=== PATIENT | male | born 1975 | race African-American/Black ===

== ENCOUNTER 2019-05-09 14:08 | Inpatient (IN) | payer OTHER ==
[2019-05-09 14:25] VITALS: BMI 25.7
--- NOTE | 2019-05-09 15:53 | HP ---
CIWA Score Nausea/Vomitin Muscle Tremors: 3 Anxiety: 3 Agitation: 3 Paroxysmal Sweats: 1-Minimal Palms Moist Orientation: 0-Oriented Tacttile Disturbances: 1-Very Mild Itch/Numbness Auditory Disturbances: 0-None Visual Disturbances: 0-None Headache: 2-Mild CIWA-Ar Total Score: 15 - Admission Criteria OASAS Guidelines: Admission for Medically Managed Detox: Requires at least one of the followin. CIWA greater than 12 2. Seizures within the past 24 hours 3. Delirium tremens within the past 24 hours 4. Hallucinations within the past 24 hours 5. Acute intervention needed for co occurring medical disorder 6. Acute intervention needed for co occurring psychiatric disorder 7. Severe withdrawal that cannot be handled at a lower level of care (continued vomiting, continued diarrhea, abnormal vital signs) requiring intravenous medication and/or fluids 8. Admitting History and Physical - Admission Chief Complaint: i need help to stop drinking alcohol,cocaine History of Present Illness: this 43 years old male with alcohol and cocaine dependence,seeking help in detox ,withdrawal symptom, last detox [facility] 2 months ago sprain of left ankle ambulation with post op shoe left asthna History Source: Patient Limitations to Obtaining History: No Limitations - Past Medical History Cardiovascular: Yes: HTN Pulmonary: Yes: Asthma Psych: Yes: Bipolar Dermatology: Yes: Eczema - Past Surgical History Past Surgical History: Yes: None - Smoking History Smoking history: Current every day smoker Have you smoked in the past 12 months: Yes Aproximately how many cigarettes per day: 20 - Alcohol/Substance Use Hx Alcohol Use: Yes History of Substance Use: reports: Cocaine - Social History Usual Living Arrangement: Yes: Other (homeless) Occupation: unemployed History of Recent Travel: No Admission ROS [facility] - [facility] Chief Complaint: i need help to stop drinking alcohol and cocaine Allergies/Adverse Reactions: Allergies Allergy/AdvReac Type Severity Reaction Status Date / Time No Known Allergies Allergy Verified 05/09/19 14:20 History of Present Illness: this 43 years old male with alcohol and cocaine dependence,seeking detox, withdrawal symptom, syncope alcohol related denied seizure had previous admissions in this facility before history of hypertension history of asthma eczema sprain left ankle wearing post op shoe lefr foot,stated did not need it anymore longest sobriety 1 year plan for rehab after detox history of syphilis treated in 2000 - Ebola screening Have you traveled outside of the country in the last 21 days: No Have you had contact with anyone from an Ebola affected area: No Have you been sick,other than usual withdrawal symptoms: No Do you have a fever: No - Review of Systems Constitutional: Loss of Appetite, Malaise, Night Sweats, Changes in sleep, Weakness, Unintentional Wgt. Loss EENT: reports: Nose Congestion Respiratory: reports: No Symptoms reported, Other (asthma) Cardiac: reports: No Symptoms Reported GI: reports: Nausea, Poor Appetite, Abdominal cramping : reports: No Symptoms Reported Integumentary: reports: Dryness Neuro: reports: Headache, Tremors Endocrine: reports: No Symptoms Reported Hematology: reports: No Symptoms Reported Psychiatric: reports: No Sypmtoms Reported, Judgement Intact, Mood/Affect Appropiate, Orientated x3, other (bipolar disorder) Other Systems: Reviewed and Negative Patient History - Patient Medical History Hx Anemia: No Hx Asthma: No Hx Chronic Obstructive Pulmonary Disease (COPD): No Hx Cancer: No Hx Cardiac Disorders: No Hx Congestive Heart Failure: No Hx Hypertension: Yes (on lisinopril) Hx Hypercholesterolemia: No Hx Pacemaker: No HX Cerebrovascular Accident: No Hx Seizures: No Hx Dementia: No Hx Diabetes: No Hx Gastrointestinal Disorders: No Hx Liver Disease: No Hx Genitourinary Disorders: No Hx Sexually Transmitted Disorders: Yes (joni 2000) Hx Renal Disease (ESRD): No Hx Thyroid Disease: No Hx Human Immunodeficiency Virus (HIV): No (last 04/20 negative) Hx Hepatitis C: No Hx Depression: Yes ([place]) Hx Suicide Attempt: No Hx Bipolar Disorder: Yes (non compliance with med) Hx Schizophrenia: No Other Medical History: no suicidal,no homicidal,non - Patient Surgical History Past Surgical History: No - PPD History Previous Implant?: Yes Documented Results: Negative w/o proof Implanted On Prior [facility] Admission?: Yes Date: 03/23/15 Results: 0 mm PPD to be Administered?: Yes - Smoking Cessation Smoking history: Current every day smoker Have you smoked in the past 12 months: Yes Aproximately how many cigarettes per day: 20 Hx Chewing Tobacco Use: No Initiated information on smoking cessation: Yes 'Breaking Loose' booklet given: 05/09/19 - Substances abused Alcohol Substance route: Oral Frequency: Daily Amount used: 3-4 pints of liquor Age of first use: 23 Date of last use: 05/09/19 Cocaine Substance route: Smoking Frequency: 3-6 times per week Amount used: $100 Age of first use: 23 Date of last use: 05/08/19 Admission Physical Exam [facility] - Vital Signs Vital Signs: Vital Signs - 24 hr 05/09/19 14:22 Temperature 98.0 F Pulse Rate 86 Respiratory 18 Rate Blood Pressure 144/70 - Physical General Appearance: Yes: Moderate Distress, Tremorous, Irritable, Sweating, Anxious HEENTM: Yes: Normal ENT Inspection, SHWETA, Pharynx Normal Respiratory: Yes: Lungs Clear, Normal Breath Sounds, No Respiratory Distress Neck: Yes: Within Normal Limits, Supple, Trachea in good position Breast: Yes: Within Normal Limits Cardiology: Yes: Within Normal Limits, Regular Rhythm, Regular Rate, S1, S2 Abdominal: Yes: Within Normal Limits, Normal Bowel Sounds, Non Tender, Flat, Soft Genitourinary: Yes: Within Normal Limits Musculoskeletal: Yes: Back pain, Muscle Pain Extremities: Yes: Tremors Neurological: Yes: net application support specialist II-XII NML intact, Fully Oriented, Alert, Motor Strength 5/5 Integumentary: Yes: Dry, Rash (eczema) Lymphatic: Yes: Within Normal Limits - Diagnostic (1) Alcohol dependence with uncomplicated withdrawal Current Visit: No Status: Acute (2) Cocaine dependence, uncomplicated Current Visit: No Status: Acute (3) Asthma Current Visit: No Status: Chronic (4) HTN (hypertension) Current Visit: No Status: Chronic (5) Eczema Current Visit: Yes Status: Acute (6) Dehydration Current Visit: Yes Status: Acute (7) Sprain of left ankle Current Visit: Yes Status: Acute (8) Bipolar disorder Current Visit: Yes Status: Acute Cleared for Admission [facility] - Detox or Rehab [facility] Level of Care: Medically Managed (ativan regimen) Breathalyzer - Breathalyzer Breathalyzer: 0 Urine Drug Screen - Test Device Lot number: [id number] Expiration date: 12/30/20 - Control Is test valid?: Yes - Results Drug screen NEGATIVE: No Urine drug screen results: HECTOR-Cocaine Inpatient Rehab Admission - Rehab Decision to Admit Inpatient rehab admission?: No
[2019-05-09] MEDS ORDERED: MAGNESIUM HYDROX 2400MG/30ML ORAL SUSPENSION 30 ML CUP PO PRN (16:13)
[2019-05-09] MEDS ORDERED: MENTHOL/PHENOL 1 EACH UD MM PRN (16:13)
[2019-05-09] MEDS ORDERED: ACETAMINOPHEN 325 MG TABLET (FP) PO PRN ×2 (16:13)
[2019-05-09] MEDS ORDERED: LORazepam 1 MG TABLET PO PRN (16:13)
[2019-05-09] MEDS ORDERED: NICOTINE POLACRILEX 2 MG GUM BUC PRN (16:13)
[2019-05-09] MEDS ORDERED: MAG HYDROX/AL HYDROX/SIMETH 30 ML UNIT-DOSE CUP PO PRN (16:13)
[2019-05-09] MEDS ORDERED: METHOCARBAMOL 500 MG TABLET PO PRN (16:13)
[2019-05-09] MEDS ORDERED: IBUPROFEN 400 MG TABLET (FP) PO PRN (16:13)
[2019-05-09] MEDS ORDERED: hydrOXYzine PAMOATE 25 MG CAPSULE (FP) PO PRN (16:13)
[2019-05-09] MEDS ORDERED: BISMUTH SUBSALICYLATE 524 MG/30 ML UD PO PRN (16:13)
[2019-05-09] MEDS ORDERED: MAGNESIUM CITRATE 300 ML BOTTLE PO PRN (16:13)
[2019-05-09] MEDS ORDERED: MELATONIN 5 MG TABLETS PO PRN (16:13)
[2019-05-09] MEDS ORDERED: ALBUTEROL SO4 8 GM HFA INHALER IH PRN (16:18)
[2019-05-09] MEDS: LISINOPRIL 10 MG TABLET (FP) PO SCH (17:36)
[2019-05-09] MEDS: LORazepam 2 MG TABLET PO SCH ×2 (17:36→22:53)
[2019-05-09] MEDS: THIAMINE HCL 100 MG TABLET (FP) PO SCH (22:52)
[2019-05-09] MEDS: FLUOCINONIDE 0.05% TOP OINT (15 GM TUBE) TP SCH (22:52)
[2019-05-10] MEDS: LORazepam 2 MG TABLET PO SCH ×4 (05:48→22:36)
--- NOTE | 2019-05-10 09:09 | PN ---
[facility] CIWA - CIWA Score Nausea/Vomitin-Mild Nausea/No Vomiting Muscle Tremors: 2 Anxiety: 3 Agitation: 1-Slight > Activity Paroxysmal Sweats: 2 Orientation: 1-Uncertain about Date (date of week) Tacttile Disturbances: 0-None Auditory Disturbances: 1-Very Mild Visual Disturbances: 0-None Headache: 2-Mild CIWA-Ar Total Score: 13 [facility] Progress Note (SOAP) Subjective: 43 years old male admitted on 05/09/19 for alcohol withdrawal sx management treated with ativan detox regimen feeling tired ate breakfast resting on bed prefers to stay in bed today Objective: 05/10/19 09:08 Vital Signs Temperature 97.8 F 05/10/19 09:05 Pulse Rate 80 05/10/19 09:05 Respiratory Rate 18 05/10/19 09:05 Blood Pressure 124/76 05/10/19 09:05 O2 Sat by Pulse Oximetry (%) 05/10/19 09:08 lab pending Assessment: 05/10/19 09:08 alcohol withdrawal sx Plan: ativan detox regimen
[2019-05-10] MEDS: PRENATAL VITAMINS W/ FOLIC ACID TABLET (FP) PO SCH (10:37)
[2019-05-10] MEDS: LISINOPRIL 10 MG TABLET (FP) PO SCH (10:37)
[2019-05-10] MEDS: NICOTINE 21 MG/24 HOURS TOPICAL PATCH TD SCH (10:38)
[2019-05-10] MEDS: FLUOCINONIDE 0.05% TOP OINT (15 GM TUBE) TP SCH ×2 (10:38→22:36)
[2019-05-10 10:59] LABS: HEMATOCRIT 37.5 % (35.4-49); HEMOGLOBIN 11.8 GM/dL (11.7-16.9); MCH 23.6 pg (25.7-33.7); MCHC 31.5 g/dl (32.0-35.9); MEAN CELL VOLUME 74.9 fl (80-96); MEAN PLT VOLUME 9.7 fl (7.5-11.1); PLATELET COUNT 162 K/MM3 (134-434); RBC 5.01 M/mm3 (4.00-5.60); RDW 17.6 % (11.9-15.9); WHITE BLOOD COUNT 4.6 K/mm3 (4.0-10.0)
[2019-05-10 11:27] LABS: ALBUMIN 3.2 g/dl (3.4-5.0); BILIRUBIN,TOTAL 0.4 mg/dL (0.2-1); CALCIUM 8.6 mg/dL (8.5-10.1); CREATININE 1.1 mg/dL (0.55-1.3); TOT PROT 6.3 g/dl (6.4-8.2)
[2019-05-10 12:16] LABS: RPR REACTIVE 1:1 (NONREACTIVE)
[2019-05-10 12:18] LABS: TREPONEMA ANTIBODY PREVIOUSLY REACTIVE (NONREACTIVE)
--- NOTE | 2019-05-10 12:50 | CONSULT ---
[facility] Psychiatric Consult - Data Date of interview: 05/10/19 Admission source: [facility] Identifying data: Readmission to [facility] for this 43 y/o AA male self- referred for detoxification (VENKATESH issues : alcohol, cocaine, nicotine). Interviewed at [address] [place] [phone]. Patient is single, father of four, homeless, unemployed and supported on odd jobs. Substance Abuse History: Discussed with patient. Details in current [facility] report as follows : Smoking history: Current every day smoker. Have you smoked in the past 12 months: Yes. Aproximately how many cigarettes per day: 20. Hx Chewing Tobacco Use: No. Initiated information on smoking cessation: Yes. 'Breaking Loose' booklet given: 05/09/19. - Substances abused. Alcohol. Substance route: Oral. Frequency: Daily. Amount used: 3-4 pints of liquor. Age of first use: 23. Date of last use: 05/09/19. Cocaine. Substance route: Smoking. Frequency: 3-6 times per week. Amount used: $100. Age of first use: 23. Date of last use: 05/08/19 Medical History: Bronchial asthma and multiple sclerosis (self-report). Psychiatric History: No reported history of psychiatric hospitalizations. Patient indicates that he has been diagnosed with MDD and Bipolar Disorder. No contact with OPD care providers. Mr Giovanny made a reference to past treatment with sertraline and " two other medications ". Off psychotropic medications for months. Patient denies history of suicide attempts. Physical/Sexual Abuse/Trauma History: Patient denies. Additional Comment: Urine drug screen results: HECTOR-Cocaine. Noted. Mental Status Exam - Mental Status Exam Alert and Oriented to: Time, Place, Person Cognitive Function: Good Patient Appearance: Unkempt, Disheveled Mood: Nervous, Withdrawn Affect: Mood Congruent, Constricted Patient Behavior: Fatigued, Appropriate, Cooperative Speech Pattern: Clear Voice Loudness: Normal Thought Process: Intact, Goal Oriented Thought Disorder: Not Present Hallucinations: Denies Suicidal Ideation: Denies Insight/Judgement: Poor Sleep: Well Appetite: Good Gait/Station: Normal Psychiatric Findings - Problem List ([place] 1, 2,3) (1) Alcohol dependence with uncomplicated withdrawal Current Visit: Yes Status: Acute (2) Cocaine dependence, uncomplicated Current Visit: Yes Status: Chronic (3) Nicotine dependence Current Visit: Yes Status: Chronic (4) Substance induced mood disorder Current Visit: Yes Status: Chronic - Initial Treatment Plan Initial Treatment Plan: Psychoeducation. Sleep hygiene. Detoxification. Observation.
[2019-05-10] MEDS ORDERED: ALBUTEROL SO4 0.083% IH SOL 2.5 MG/3 ML VIAL.NEB. NEB PRN (15:45)
[2019-05-10] MEDS: THIAMINE HCL 100 MG TABLET (FP) PO SCH (22:36)
[2019-05-11] MEDS: LORazepam 1 MG TABLET PO SCH ×4 (06:11→22:38)
--- NOTE | 2019-05-11 09:01 | PN ---
[facility] CIWA - CIWA Score Nausea/Vomitin-No Nausea/No Vomiting Muscle Tremors: 2 Anxiety: 2 Agitation: 1-Slight > Activity Paroxysmal Sweats: 2 Orientation: 0-Oriented Tacttile Disturbances: 1-Very Mild Itch/Numbness Auditory Disturbances: 0-None Visual Disturbances: 0-None Headache: 0-None Present CIWA-Ar Total Score: 8 S Progress Note (SOAP) Subjective: 43 years old male admitted on 05/09/19 for alcohol withdrawal sx management treated with ativan detox regimen ate breakfast feeling tired resting on bed encourage the patient to attend detox groups and meetings Objective: 05/11/19 09:00 Vital Signs Temperature 98.6 F 05/11/19 06:09 Pulse Rate 69 05/11/19 06:09 Respiratory Rate 18 05/11/19 06:09 Blood Pressure 125/73 05/11/19 06:09 O2 Sat by Pulse Oximetry (%) Laboratory Last Values WBC 4.6 K/mm3 (4.0-10.0) 05/10/19 07:50 RBC 5.01 M/mm3 (4.00-5.60) 05/10/19 07:50 Hgb 11.8 GM/dL (11.7-16.9) 05/10/19 07:50 Hct 37.5 % (35.4-49) D 05/10/19 07:50 MCV 74.9 fl (80-96) L 05/10/19 07:50 MCH 23.6 pg (25.7-33.7) L 05/10/19 07:50 MCHC 31.5 g/dl (32.0-35.9) L 05/10/19 07:50 RDW 17.6 % (11.9-15.9) H 05/10/19 07:50 Plt Count 162 K/MM3 (134-434) 05/10/19 07:50 MPV 9.7 fl (7.5-11.1) D 05/10/19 07:50 Sodium 142 mmol/L (136-145) 05/10/19 07:50 Potassium 4.0 mmol/L (3.5-5.1) 05/10/19 07:50 Chloride 108 mmol/L (98-107) H 05/10/19 07:50 Carbon Dioxide 25 mmol/L (21-32) 05/10/19 07:50 Anion Gap 9 MMOL/L (8-16) 05/10/19 07:50 BUN 15.0 mg/dL (7-18) 05/10/19 07:50 Creatinine 1.1 mg/dL (0.55-1.3) 05/10/19 07:50 Est GFR (CKD-EPI)AfAm 95.46 05/10/19 07:50 Est GFR (CKD-EPI)NonAf 82.36 05/10/19 07:50 Random Glucose 99 mg/dL (74-106) 05/10/19 07:50 Calcium 8.6 mg/dL (8.5-10.1) 05/10/19 07:50 Total Bilirubin 0.4 mg/dL (0.2-1) 05/10/19 07:50 AST 37 U/L (15-37) 05/10/19 07:50 ALT 32 U/L (13-61) 05/10/19 07:50 Alkaline Phosphatase 51 U/L (45-117) 05/10/19 07:50 Total Protein 6.3 g/dl (6.4-8.2) L 05/10/19 07:50 Albumin 3.2 g/dl (3.4-5.0) L 05/10/19 07:50 RPR Titer Reactive 1:1 (NONREACTIVE) H 05/10/19 07:50 T.pallidum Ab (MHA) Previously reactive (NONREACTIVE) 05/10/19 07:50 lab noted previously MHA reactive 05/11/19 09:01 Assessment: 05/11/19 09:02 alcohol withdrawal sx Plan: ativan detox regimen
[2019-05-11] MEDS: FLUOCINONIDE 0.05% TOP OINT (15 GM TUBE) TP SCH ×2 (10:09→22:38)
[2019-05-11] MEDS: LISINOPRIL 10 MG TABLET (FP) PO SCH (10:09)
[2019-05-11] MEDS: PRENATAL VITAMINS W/ FOLIC ACID TABLET (FP) PO SCH (10:09)
[2019-05-11] MEDS: NICOTINE 21 MG/24 HOURS TOPICAL PATCH TD SCH (10:10)
[2019-05-11] MEDS: ALBUTEROL SO4 8 GM HFA INHALER IH PRN (13:44)
[2019-05-11 15:49] LABS: PH,URINE 8.5 (5.0-8.0); URINE APPEARANCE CLEAR; URINE BILIRUBIN NEGATIVE (NEGATIVE); URINE COLOR YELLOW; URINE GLUCOSE (UA) NEGATIVE (NEGATIVE); URINE KETONE NEGATIVE (NEGATIVE); URINE LEUK ESTERASE NEGATIVE (NEGATIVE); URINE NITRITE NEGATIVE (NEGATIVE); URINE PROTEIN NEGATIVE (NEGATIVE); URINE UROBILINOGEN 0.2 mg/dL (0.2-1.0)
[2019-05-11] MEDS: THIAMINE HCL 100 MG TABLET (FP) PO SCH (22:38)
[2019-05-12] MEDS ORDERED: LORazepam 0.5 MG TABLET PO PRN
[2019-05-12] MEDS: ALBUTEROL SO4 8 GM HFA INHALER IH PRN ×3 (01:07→18:02)
[2019-05-12] MEDS: LORazepam 0.5 MG TABLET PO SCH ×4 (07:07→22:25)
[2019-05-12] MEDS: LISINOPRIL 10 MG TABLET (FP) PO SCH (10:08)
[2019-05-12] MEDS: FLUOCINONIDE 0.05% TOP OINT (15 GM TUBE) TP SCH ×2 (10:09→22:25)
[2019-05-12] MEDS: PRENATAL VITAMINS W/ FOLIC ACID TABLET (FP) PO SCH (10:10)
[2019-05-12] MEDS: NICOTINE 21 MG/24 HOURS TOPICAL PATCH TD SCH (10:10)
--- NOTE | 2019-05-12 10:23 | PN ---
[facility] CIWA - CIWA Score Nausea/Vomitin-No Nausea/No Vomiting Muscle Tremors: 2 Anxiety: 1-Mildly Anxious Agitation: 0-Normal Activity Paroxysmal Sweats: No Perspiration Orientation: 0-Oriented Tacttile Disturbances: 1-Very Mild Itch/Numbness Auditory Disturbances: 0-None Visual Disturbances: 0-None Headache: 0-None Present CIWA-Ar Total Score: 4 [facility] Progress Note (SOAP) Subjective: 43 years old male admitted on 05/09/19 for alcohol withdrawal sx management treated with ativan detox regimen feeling better good selfcare less tremor discuss aftercare with staff Objective: 05/12/19 10:24 Vital Signs Temperature 97.3 F L 05/12/19 09:14 Pulse Rate 90 05/12/19 09:14 Respiratory Rate 18 05/12/19 09:14 Blood Pressure 126/85 05/12/19 09:14 O2 Sat by Pulse Oximetry (%) Laboratory Last Values WBC 4.6 K/mm3 (4.0-10.0) 05/10/19 07:50 RBC 5.01 M/mm3 (4.00-5.60) 05/10/19 07:50 Hgb 11.8 GM/dL (11.7-16.9) 05/10/19 07:50 Hct 37.5 % (35.4-49) D 05/10/19 07:50 MCV 74.9 fl (80-96) L 05/10/19 07:50 MCH 23.6 pg (25.7-33.7) L 05/10/19 07:50 MCHC 31.5 g/dl (32.0-35.9) L 05/10/19 07:50 RDW 17.6 % (11.9-15.9) H 05/10/19 07:50 Plt Count 162 K/MM3 (134-434) 05/10/19 07:50 MPV 9.7 fl (7.5-11.1) D 05/10/19 07:50 Sodium 142 mmol/L (136-145) 05/10/19 07:50 Potassium 4.0 mmol/L (3.5-5.1) 05/10/19 07:50 Chloride 108 mmol/L (98-107) H 05/10/19 07:50 Carbon Dioxide 25 mmol/L (21-32) 05/10/19 07:50 Anion Gap 9 MMOL/L (8-16) 05/10/19 07:50 BUN 15.0 mg/dL (7-18) 05/10/19 07:50 Creatinine 1.1 mg/dL (0.55-1.3) 05/10/19 07:50 Est GFR (CKD-EPI)AfAm 95.46 05/10/19 07:50 Est GFR (CKD-EPI)NonAf 82.36 05/10/19 07:50 Random Glucose 99 mg/dL (74-106) 05/10/19 07:50 Calcium 8.6 mg/dL (8.5-10.1) 05/10/19 07:50 Total Bilirubin 0.4 mg/dL (0.2-1) 05/10/19 07:50 AST 37 U/L (15-37) 05/10/19 07:50 ALT 32 U/L (13-61) 05/10/19 07:50 Alkaline Phosphatase 51 U/L (45-117) 05/10/19 07:50 Total Protein 6.3 g/dl (6.4-8.2) L 05/10/19 07:50 Albumin 3.2 g/dl (3.4-5.0) L 05/10/19 07:50 Urine Color Yellow 05/11/19 13:30 Urine Appearance Clear 05/11/19 13:30 Urine pH 8.5 (5.0-8.0) H D 05/11/19 13:30 Ur Specific [place] 1.019 (1.010-1.035) 05/11/19 13:30 Urine Protein Negative (NEGATIVE) 05/11/19 13:30 Urine Glucose (UA) Negative (NEGATIVE) 05/11/19 13:30 Urine Ketones Negative (NEGATIVE) 05/11/19 13:30 Urine Blood Negative (NEGATIVE) 05/11/19 13:30 Urine Nitrite Negative (NEGATIVE) 05/11/19 13:30 Urine Bilirubin Negative (NEGATIVE) 05/11/19 13:30 Urine Urobilinogen 0.2 mg/dL (0.2-1.0) 05/11/19 13:30 Ur Leukocyte Esterase Negative (NEGATIVE) 05/11/19 13:30 RPR Titer Reactive 1:1 (NONREACTIVE) H 05/10/19 07:50 T.pallidum Ab (MHA) Previously reactive (NONREACTIVE) 05/10/19 07:50 lab noted Assessment: 05/12/19 10:24 alcohol withdrawal sx Plan: ativan detox regimen
[2019-05-12] MEDS: BUDESONIDE/FORMETEROL FUMARATE 80/4.5 mcg INHALER IH SCH ×2 (12:00→22:25)
[2019-05-12] MEDS: THIAMINE HCL 100 MG TABLET (FP) PO SCH (22:25)
[2019-05-13] MEDS ORDERED: LORazepam 0.5 MG TABLET PO ONE (05:00)
[2019-05-13 06:08] VITALS: BP 98/59; PULSE 63; TEMP 97.5
--- NOTE | 2019-05-13 13:34 | DS ---
[facility] Detox Discharge Summary Admission Date: 05/09/19 Discharge Date: 05/13/19 - History Present History: Alcohol Dependence Additional Comments: 43 years old male admitted on 05/09/19 for alcohol withdrawal sx management treated with ativan detox regimen completed detox today left the detox unit round 7am today sports writer has not assessed nor evaluated the patient prior to be discharged - Physical Exam Results Vital Signs: Vital Signs Temperature 97.5 F L 05/13/19 06:08 Pulse Rate 63 05/13/19 06:08 Respiratory Rate 18 05/13/19 06:08 Blood Pressure 98/59 L 05/13/19 06:08 O2 Sat by Pulse Oximetry (%) Pertinent Admission Physical Exam Findings: alcohol withdrawal sx Laboratory Last Values WBC 4.6 K/mm3 (4.0-10.0) 05/10/19 07:50 RBC 5.01 M/mm3 (4.00-5.60) 05/10/19 07:50 Hgb 11.8 GM/dL (11.7-16.9) 05/10/19 07:50 Hct 37.5 % (35.4-49) D 05/10/19 07:50 MCV 74.9 fl (80-96) L 05/10/19 07:50 MCH 23.6 pg (25.7-33.7) L 05/10/19 07:50 MCHC 31.5 g/dl (32.0-35.9) L 05/10/19 07:50 RDW 17.6 % (11.9-15.9) H 05/10/19 07:50 Plt Count 162 K/MM3 (134-434) 05/10/19 07:50 MPV 9.7 fl (7.5-11.1) D 05/10/19 07:50 Sodium 142 mmol/L (136-145) 05/10/19 07:50 Potassium 4.0 mmol/L (3.5-5.1) 05/10/19 07:50 Chloride 108 mmol/L (98-107) H 05/10/19 07:50 Carbon Dioxide 25 mmol/L (21-32) 05/10/19 07:50 Anion Gap 9 MMOL/L (8-16) 05/10/19 07:50 BUN 15.0 mg/dL (7-18) 05/10/19 07:50 Creatinine 1.1 mg/dL (0.55-1.3) 05/10/19 07:50 Est GFR (CKD-EPI)AfAm 95.46 05/10/19 07:50 Est GFR (CKD-EPI)NonAf 82.36 05/10/19 07:50 Random Glucose 99 mg/dL (74-106) 05/10/19 07:50 Calcium 8.6 mg/dL (8.5-10.1) 05/10/19 07:50 Total Bilirubin 0.4 mg/dL (0.2-1) 05/10/19 07:50 AST 37 U/L (15-37) 05/10/19 07:50 ALT 32 U/L (13-61) 05/10/19 07:50 Alkaline Phosphatase 51 U/L (45-117) 05/10/19 07:50 Total Protein 6.3 g/dl (6.4-8.2) L 05/10/19 07:50 Albumin 3.2 g/dl (3.4-5.0) L 05/10/19 07:50 Urine Color Yellow 05/11/19 13:30 Urine Appearance Clear 05/11/19 13:30 Urine pH 8.5 (5.0-8.0) H D 05/11/19 13:30 Ur Specific [place] 1.019 (1.010-1.035) 05/11/19 13:30 Urine Protein Negative (NEGATIVE) 05/11/19 13:30 Urine Glucose (UA) Negative (NEGATIVE) 05/11/19 13:30 Urine Ketones Negative (NEGATIVE) 05/11/19 13:30 Urine Blood Negative (NEGATIVE) 05/11/19 13:30 Urine Nitrite Negative (NEGATIVE) 05/11/19 13:30 Urine Bilirubin Negative (NEGATIVE) 05/11/19 13:30 Urine Urobilinogen 0.2 mg/dL (0.2-1.0) 05/11/19 13:30 Ur Leukocyte Esterase Negative (NEGATIVE) 05/11/19 13:30 RPR Titer Reactive 1:1 (NONREACTIVE) H 05/10/19 07:50 T.pallidum Ab (MHA) Previously reactive (NONREACTIVE) 05/10/19 07:50 lab noted - Treatment Hospital Course: Detox Protocol Followed Patient has Accepted [facility] - Medication Discharge Medications: Ambulatory Orders Albuterol Sulfate Inhaler - [Ventolin HFA Inhaler -] 1 puff IH Q4H PRN #1 canister 03/24/15 Fluocinonide 0.05% Oin [Lidex 0.05% Ointment -] 1 applic TP DAILY #0 oint...g. 03/24/15 - Diagnosis (1) Alcohol dependence with uncomplicated withdrawal Status: Acute (2) Eczema Status: Chronic Qualifiers: Eczema type: unspecified Qualified Code(s): L30.9 - Dermatitis, unspecified (3) Syphilis Status: Chronic (4) Asthma Status: Chronic Qualifiers: Asthma severity: mild Asthma persistence: intermittent Asthma complication type: with status asthmaticus Qualified Code(s): J45.22 - Mild intermittent asthma with status asthmaticus (5) HTN (hypertension) Status: Chronic Qualifiers: Hypertension type: essential hypertension Qualified Code(s): I10 - Essential (primary) hypertension (6) Nicotine dependence Status: Acute Qualifiers: Nicotine product type: cigarettes Substance use status: in withdrawal Qualified Code(s): F17.213 - Nicotine dependence, cigarettes, with withdrawal (7) Substance induced mood disorder Status: Suspected - AMA Did Patient Leave Against Medical Advice: No
== END 2019-05-13 06:58 | disposition home or self-care (01) | DRG 774 ==
LOC: YASAS 14:08 → Y3N 17:01
PROVIDERS: ADMIT Allergy & Immunology; ATTEND Allergy & Immunology
PROC: HZ2ZZZZ Detoxification Services for Substance Abuse Treatment (ICD-10-PCS; principal; 2019-05-09)
DX: F10.230 Alcohol dependence with withdrawal, uncomplicated (principal); F14.20 Cocaine dependence, uncomplicated; F17.213 Nicotine dependence, cigarettes, with withdrawal; F19.24 Other psychoactive substance dependence with psychoactive substance-induced mood disorder; F31.9 Bipolar disorder, unspecified; I10 Essential (primary) hypertension; J45.22 Mild intermittent asthma with status asthmaticus; L30.9 Dermatitis, unspecified; E86.0 Dehydration; Z86.19 Personal history of other infectious and parasitic diseases; S93.402A Sprain of unspecified ligament of left ankle, initial encounter; X58.XXXA Exposure to other specified factors, initial encounter; Y93.89 Activity, other specified; Y92.89 Other specified places as the place of occurrence of the external cause; Y99.8 Other external cause status; Z59.0 Homelessness
CPT/HCPCS: 36415; 80053; 81003; 85027; 86593; 86780

== ENCOUNTER 2019-06-06 15:18 | Inpatient (IN) | payer OTHER ==
[2019-06-06 16:43] VITALS: BMI 25.9
--- NOTE | 2019-06-06 18:48 | HP ---
CIWA Score Nausea/Vomitin Muscle Tremors: 3 Anxiety: 3 Agitation: 3 Paroxysmal Sweats: No Perspiration Orientation: 0-Oriented Tacttile Disturbances: 1-Very Mild Itch/Numbness Auditory Disturbances: 0-None Visual Disturbances: 0-None Headache: 2-Mild CIWA-Ar Total Score: 14 - Admission Criteria OASAS Guidelines: Admission for Medically Managed Detox: Requires at least one of the followin. CIWA greater than 12 2. Seizures within the past 24 hours 3. Delirium tremens within the past 24 hours 4. Hallucinations within the past 24 hours 5. Acute intervention needed for co occurring medical disorder 6. Acute intervention needed for co occurring psychiatric disorder 7. Severe withdrawal that cannot be handled at a lower level of care (continued vomiting, continued diarrhea, abnormal vital signs) requiring intravenous medication and/or fluids 8. Admitting History and Physical - Admission Chief Complaint: i need help to stop drinking alcohol and cocaine History of Present Illness: this 43 years old male with alcohol and cocaine dependence seeking detox, withdrwal symptom history of asthma,eczema last detox 05/09/19 to 05/13/19 but keep relapsing syncope no seizure nicotine dependence anxiety depression History Source: Patient Limitations to Obtaining History: No Limitations - Past Medical History VASCULAR MANAGER: Yes: Syncope Cardiovascular: Yes: HTN Pulmonary: Yes: Asthma Psych: Yes: Bipolar Dermatology: Yes: Eczema - Past Surgical History Past Surgical History: Yes: None - Smoking History Smoking history: Current every day smoker Have you smoked in the past 12 months: Yes Aproximately how many cigarettes per day: 20 - Alcohol/Substance Use Hx Alcohol Use: Yes History of Substance Use: reports: Cocaine - Social History Usual Living Arrangement: Yes: Alone ADL: Support Services Occupation: unemployed History of Recent Travel: No Admission ROS [facility] Chief Complaint: i need help to stop drinking alcohol,cocaine Allergies/Adverse Reactions: Allergies Allergy/AdvReac Type Severity Reaction Status Date / Time No Known Allergies Allergy Verified 06/06/19 16:29 History of Present Illness: this 43 years old male with alcohol and cocaine dependence,seeking detox, withdrawal symptom, last detox [facility] 05/09/19 to 05/13/19 syncope no seizure history of htn,asthma,eczema living alone,unemployed longest sobriety 2 years Exam Limitations: No Limitations - Ebola screening Have you traveled outside of the country in the last 21 days: No (N) Have you had contact with anyone from an Ebola affected area: No Do you have a fever: No - Review of Systems Constitutional: Loss of Appetite, Night Sweats, Changes in sleep EENT: reports: No Symptoms Reported Respiratory: reports: Wheezing Cardiac: reports: No Symptoms Reported GI: reports: Nausea, Poor Appetite, Abdominal cramping : reports: No Symptoms Reported Musculoskeletal: reports: Back Pain, Muscle Pain Integumentary: reports: Dryness, Rash, Other (eczema) Neuro: reports: Headache, Tremors Endocrine: reports: No Symptoms Reported Hematology: reports: No Symptoms Reported Psychiatric: reports: No Sypmtoms Reported, Judgement Intact, Mood/Affect Appropiate, Orientated x3, other (bipolar disorder) Other Systems: Reviewed and Negative Patient History - Patient Medical History Hx Anemia: No Hx Asthma: No Hx Chronic Obstructive Pulmonary Disease (COPD): No Hx Cancer: No Hx Cardiac Disorders: No Hx Congestive Heart Failure: No Hx Hypertension: Yes (on lisinopril) Hx Hypercholesterolemia: No Hx Pacemaker: No HX Cerebrovascular Accident: No Hx Seizures: No Hx Dementia: No Hx Diabetes: No Hx Gastrointestinal Disorders: No Hx Liver Disease: No Hx Genitourinary Disorders: No Hx Sexually Transmitted Disorders: Yes (syphilis 2000) Hx Renal Disease (ESRD): No Hx Thyroid Disease: No Hx Human Immunodeficiency Virus (HIV): No (last 04/20 negative) Hx Hepatitis C: No Hx Depression: Yes ([place]) Hx Suicide Attempt: No Hx Bipolar Disorder: Yes (non compliance with med) Hx Schizophrenia: No Other Medical History: no suicidal,no homicidal - Patient Surgical History Past Surgical History: No Hx Neurologic Surgery: No Hx Cataract Extraction: No Hx Cardiac Surgery: No Hx Lung Surgery: No Hx Breast Surgery: No Hx Breast Biopsy: No Hx Abdominal Surgery: No Hx Appendectomy: No Hx Cholecystectomy: No Hx Genitourinary Surgery: No Hx Section: No Hx Orthopedic Surgery: No Anesthesia Reaction: No - PPD History Previous Implant?: Yes Documented Results: Negative w/proof Implanted On Prior R Admission?: Yes Date: 05/11/19 Results: 0 mm PPD to be Administered?: No - Smoking Cessation Smoking history: Current every day smoker Have you smoked in the past 12 months: Yes Aproximately how many cigarettes per day: 20 Hx Chewing Tobacco Use: No Initiated information on smoking cessation: Yes 'Breaking Loose' booklet given: 06/06/19 - Substance & Tx. History Hx Alcohol Use: Yes Hx Substance Use: Yes Substance Use Type: Alcohol, Cocaine Hx Substance Use Treatment: Yes ([facility] 05/09/18 to 05/13/19) - Substances abused Alcohol Substance route: Oral Frequency: Daily Amount used: 3-4 pints of liquor, 1 six packof 12 ozs of beer Age of first use: 23 Date of last use: 06/06/19 Cocaine Substance route: Smoking Frequency: 3-6 times per week Amount used: $100 Age of first use: 23 Date of last use: 06/05/19 Admission Physical Exam [facility] - Vital Signs Vital Signs: Vital Signs - 24 hr 06/06/19 06/06/19 06/06/19 16:20 16:42 17:17 Temperature 98.4 F 98.4 F 98.4 F Pulse Rate 85 85 85 Respiratory 18 18 18 Rate Blood Pressure 132/68 132/68 132/68 - Physical General Appearance: Yes: Moderate Distress, Tremorous, Irritable, Sweating, Anxious HEENTM: Yes: Normal ENT Inspection, SHWETA, Pharynx Normal Respiratory: Yes: Lungs Clear, Wheezing Neck: Yes: Within Normal Limits, Supple, Trachea in good position Breast: Yes: Within Normal Limits Cardiology: Yes: Within Normal Limits, Regular Rhythm, Regular Rate, S1, S2 Abdominal: Yes: Within Normal Limits, Normal Bowel Sounds, Non Tender, Soft Genitourinary: Yes: Within Normal Limits Back: Yes: Muscle Spasm Musculoskeletal: Yes: Back pain, Muscle Pain Extremities: Yes: Tremors Neurological: Yes: case planner II-XII NML intact, Alert, Motor Strength 5/5 Integumentary: Yes: Dry, Rash (eczema), Other (eczema) Lymphatic: Yes: Within Normal Limits - Diagnostic (1) Alcohol dependence with uncomplicated withdrawal Current Visit: No Status: Acute (2) Bipolar disorder Current Visit: No Status: Acute (3) Dehydration Current Visit: No Status: Acute (4) Nicotine dependence Current Visit: No Status: Acute Qualifiers: Nicotine product type: cigarettes Substance use status: in withdrawal Qualified Code(s): F17.213 - Nicotine dependence, cigarettes, with withdrawal (5) Asthma Current Visit: No Status: Chronic Qualifiers: Asthma severity: mild Asthma persistence: intermittent Asthma complication type: with status asthmaticus Qualified Code(s): J45.22 - Mild intermittent asthma with status asthmaticus (6) Cocaine dependence, uncomplicated Current Visit: No Status: Chronic (7) Eczema Current Visit: No Status: Chronic Qualifiers: Eczema type: unspecified Qualified Code(s): L30.9 - Dermatitis, unspecified (8) HTN (hypertension) Current Visit: No Status: Chronic Qualifiers: Hypertension type: essential hypertension Qualified Code(s): I10 - Essential (primary) hypertension (9) Syphilis Current Visit: No Status: Chronic (10) Syncope Current Visit: Yes Status: Acute Cleared for Admission S - Detox or Rehab [facility] Level of Care: Medically Managed Detox Regimen/Protocol: Librium Breathalyzer - Breathalyzer Breathalyzer: 0 Urine Drug Screen - Test Device Lot number: [id number] Expiration date: 03/01/21 - Control Is test valid?: Yes - Results Drug screen NEGATIVE: No Urine drug screen results: HECTOR-Cocaine, BZO-Benzodiazepines Inpatient Rehab Admission - Rehab Decision to Admit Inpatient rehab admission?: No
[2019-06-06] MEDS ORDERED: ACETAMINOPHEN 325 MG TABLET (FP) PO PRN ×2 (19:00)
[2019-06-06] MEDS ORDERED: MAG HYDROX/AL HYDROX/SIMETH 30 ML UNIT-DOSE CUP PO PRN (19:00)
[2019-06-06] MEDS ORDERED: MAGNESIUM CITRATE 300 ML BOTTLE PO PRN (19:00)
[2019-06-06] MEDS ORDERED: MELATONIN 5 MG TABLETS PO PRN (19:00)
[2019-06-06] MEDS ORDERED: IBUPROFEN 400 MG TABLET (FP) PO PRN (19:00)
[2019-06-06] MEDS ORDERED: chlordiazePOXIDE HCL 25 MG CAPSULE PO PRN (19:00)
[2019-06-06] MEDS ORDERED: BISMUTH SUBSALICYLATE 524 MG/30 ML UD PO PRN (19:00)
[2019-06-06] MEDS ORDERED: hydrOXYzine PAMOATE 25 MG CAPSULE (FP) PO PRN (19:00)
[2019-06-06] MEDS ORDERED: METHOCARBAMOL 500 MG TABLET PO PRN (19:00)
[2019-06-06] MEDS ORDERED: MAGNESIUM HYDROX 2400MG/30ML ORAL SUSPENSION 30 ML CUP PO PRN (19:00)
[2019-06-06] MEDS ORDERED: MENTHOL/PHENOL 1 EACH UD MM PRN (19:00)
[2019-06-06] MEDS: chlordiazePOXIDE HCL 25 MG CAPSULE PO SCH (23:20)
[2019-06-06] MEDS: THIAMINE HCL 100 MG TABLET (FP) PO SCH (23:21)
[2019-06-06] MEDS: FLUOCINONIDE 0.05% TOP OINT (60 GM TUBE) TP SCH (23:23)
[2019-06-07] MEDS: ALBUTEROL SO4 8 GM HFA INHALER IH PRN ×4 (01:59→22:53)
[2019-06-07] MEDS: chlordiazePOXIDE HCL 25 MG CAPSULE PO SCH ×4 (05:58→22:32)
[2019-06-07 09:57] LABS: HEMATOCRIT 38.1 % (35.4-49); HEMOGLOBIN 11.9 GM/dL (11.7-16.9); MCH 23.4 pg (25.7-33.7); MCHC 31.2 g/dl (32.0-35.9); MEAN PLT VOLUME 9.2 fl (7.5-11.1); PLATELET COUNT 180 K/MM3 (134-434); RBC 5.07 M/mm3 (4.00-5.60); WHITE BLOOD COUNT 4.4 K/mm3 (4.0-10.0)
[2019-06-07 10:02] LABS: ALBUMIN 3.2 g/dl (3.4-5.0); BILIRUBIN,TOTAL 0.2 mg/dL (0.2-1); BLOOD UREA NITROGEN 13.3 mg/dL (7-18); CALCIUM 8.6 mg/dL (8.5-10.1); CREATININE 1.1 mg/dL (0.55-1.3); TOT PROT 6.5 g/dl (6.4-8.2)
[2019-06-07] MEDS: FLUOCINONIDE 0.05% TOP OINT (60 GM TUBE) TP SCH ×2 (10:21→22:52)
[2019-06-07] MEDS: PRENATAL VITAMINS W/ FOLIC ACID TABLET (FP) PO SCH (10:21)
[2019-06-07 11:20] LABS: RPR REACTIVE 1:1 (NONREACTIVE)
[2019-06-07 11:23] LABS: TREPONEMA ANTIBODY PREVIOUSLY REACTIVE (NONREACTIVE)
--- NOTE | 2019-06-07 12:28 | PN ---
[facility] CIWA - CIWA Score Nausea/Vomitin-Mild Nausea/No Vomiting Muscle Tremors: 3 Anxiety: 3 Agitation: 1-Slight > Activity Paroxysmal Sweats: 2 Orientation: 1-Uncertain about Date Tacttile Disturbances: 0-None Auditory Disturbances: 0-None Visual Disturbances: 0-None Headache: 1-Very Mild CIWA-Ar Total Score: 12 S Progress Note (SOAP) Subjective: 43 years old male admitted on 06/06/19 for alcohol withdrawal sx management treating with librium detox regimen feeling tired today prefers to stay in bed limited conversation with staff Objective: 06/07/19 12:27 Vital Signs Temperature 97.3 F L 06/07/19 09:02 Pulse Rate 75 06/07/19 09:02 Respiratory Rate 18 06/07/19 09:02 Blood Pressure 130/79 06/07/19 09:02 O2 Sat by Pulse Oximetry (%) Laboratory Last Values WBC 4.4 K/mm3 (4.0-10.0) 06/07/19 08:15 RBC 5.07 M/mm3 (4.00-5.60) 06/07/19 08:15 Hgb 11.9 GM/dL (11.7-16.9) 06/07/19 08:15 Hct 38.1 % (35.4-49) 06/07/19 08:15 MCV 75.0 fl (80-96) L 06/07/19 08:15 MCH 23.4 pg (25.7-33.7) L 06/07/19 08:15 MCHC 31.2 g/dl (32.0-35.9) L 06/07/19 08:15 RDW 17.0 % (11.9-15.9) H 06/07/19 08:15 Plt Count 180 K/MM3 (134-434) 06/07/19 08:15 MPV 9.2 fl (7.5-11.1) 06/07/19 08:15 Sodium 140 mmol/L (136-145) 06/07/19 08:15 Potassium 4.0 mmol/L (3.5-5.1) 06/07/19 08:15 Chloride 108 mmol/L (98-107) H 06/07/19 08:15 Carbon Dioxide 25 mmol/L (21-32) 06/07/19 08:15 Anion Gap 7 MMOL/L (8-16) L 06/07/19 08:15 BUN 13.3 mg/dL (7-18) 06/07/19 08:15 Creatinine 1.1 mg/dL (0.55-1.3) 06/07/19 08:15 Est GFR (CKD-EPI)AfAm 95.46 06/07/19 08:15 Est GFR (CKD-EPI)NonAf 82.36 06/07/19 08:15 Random Glucose 85 mg/dL (74-106) 06/07/19 08:15 Calcium 8.6 mg/dL (8.5-10.1) 06/07/19 08:15 Total Bilirubin 0.2 mg/dL (0.2-1) 06/07/19 08:15 AST 33 U/L (15-37) 06/07/19 08:15 ALT 25 U/L (13-61) 06/07/19 08:15 Alkaline Phosphatase 51 U/L (45-117) 06/07/19 08:15 Total Protein 6.5 g/dl (6.4-8.2) 06/07/19 08:15 Albumin 3.2 g/dl (3.4-5.0) L 06/07/19 08:15 RPR Titer Reactive 1:1 (NONREACTIVE) H 06/07/19 08:15 T.pallidum Ab (MHA) Previously reactive (NONREACTIVE) 06/07/19 08:15 lab noted Assessment: 06/07/19 12:28 alcohol withdrawal Plan: librium regimen
[2019-06-07] MEDS: COLLOIDAL OATMEAL 1 BAR EACH TP PRN (17:33)
--- NOTE | 2019-06-07 17:54 | CONSULT ---
[facility] Psychiatric Consult - Data Date of interview: 06/07/19 Admission source: [facility] Identifying data: Patient refused psychiatric evaluation. Nursing staff is made aware.
[2019-06-07] MEDS: THIAMINE HCL 100 MG TABLET (FP) PO SCH (22:33)
[2019-06-08] MEDS: chlordiazePOXIDE HCL 25 MG CAPSULE PO SCH ×2 (06:18→10:30)
[2019-06-08] MEDS: PRENATAL VITAMINS W/ FOLIC ACID TABLET (FP) PO SCH (10:30)
[2019-06-08] MEDS: FLUOCINONIDE 0.05% TOP OINT (60 GM TUBE) TP SCH ×2 (10:30→22:41)
--- NOTE | 2019-06-08 11:49 | PN ---
S CIWA - CIWA Score Nausea/Vomitin-No Nausea/No Vomiting Muscle Tremors: 2 Anxiety: 3 Agitation: 1-Slight > Activity Paroxysmal Sweats: 2 Orientation: 0-Oriented Tacttile Disturbances: 0-None Auditory Disturbances: 0-None Visual Disturbances: 0-None Headache: 0-None Present CIWA-Ar Total Score: 8 BHS Progress Note (SOAP) Subjective: 43 years old male admitted on 06/06/19 for alcohol withdrawal sx management treating with librium detox regimen refuse librium 25 mg today that "too much" and made him tired modified librium 25 mg and 10 mg to suitable for the needs of patient Objective: 06/08/19 11:48 Vital Signs Temperature 97.5 F L 06/08/19 09:21 Pulse Rate 66 06/08/19 09:21 Respiratory Rate 18 06/08/19 09:21 Blood Pressure 131/77 06/08/19 09:21 O2 Sat by Pulse Oximetry (%) Laboratory Last Values WBC 4.4 K/mm3 (4.0-10.0) 06/07/19 08:15 RBC 5.07 M/mm3 (4.00-5.60) 06/07/19 08:15 Hgb 11.9 GM/dL (11.7-16.9) 06/07/19 08:15 Hct 38.1 % (35.4-49) 06/07/19 08:15 MCV 75.0 fl (80-96) L 06/07/19 08:15 MCH 23.4 pg (25.7-33.7) L 06/07/19 08:15 MCHC 31.2 g/dl (32.0-35.9) L 06/07/19 08:15 RDW 17.0 % (11.9-15.9) H 06/07/19 08:15 Plt Count 180 K/MM3 (134-434) 06/07/19 08:15 MPV 9.2 fl (7.5-11.1) 06/07/19 08:15 Sodium 140 mmol/L (136-145) 06/07/19 08:15 Potassium 4.0 mmol/L (3.5-5.1) 06/07/19 08:15 Chloride 108 mmol/L (98-107) H 06/07/19 08:15 Carbon Dioxide 25 mmol/L (21-32) 06/07/19 08:15 Anion Gap 7 MMOL/L (8-16) L 06/07/19 08:15 BUN 13.3 mg/dL (7-18) 06/07/19 08:15 Creatinine 1.1 mg/dL (0.55-1.3) 06/07/19 08:15 Est GFR (CKD-EPI)AfAm 95.46 06/07/19 08:15 Est GFR (CKD-EPI)NonAf 82.36 06/07/19 08:15 Random Glucose 85 mg/dL (74-106) 06/07/19 08:15 Calcium 8.6 mg/dL (8.5-10.1) 06/07/19 08:15 Total Bilirubin 0.2 mg/dL (0.2-1) 06/07/19 08:15 AST 33 U/L (15-37) 06/07/19 08:15 ALT 25 U/L (13-61) 06/07/19 08:15 Alkaline Phosphatase 51 U/L (45-117) 06/07/19 08:15 Total Protein 6.5 g/dl (6.4-8.2) 06/07/19 08:15 Albumin 3.2 g/dl (3.4-5.0) L 06/07/19 08:15 RPR Titer Reactive 1:1 (NONREACTIVE) H 06/07/19 08:15 T.pallidum Ab (MHA) Previously reactive (NONREACTIVE) 06/07/19 08:15 lab noted Assessment: 06/08/19 11:48 alcohol withdrawal Plan: libirum regimen
[2019-06-08] MEDS: chlordiazePOXIDE HCL 10 MG CAPSULE PO SCH ×2 (17:18→22:42)
[2019-06-08] MEDS: ALBUTEROL SO4 8 GM HFA INHALER IH PRN (17:19)
[2019-06-08] MEDS: THIAMINE HCL 100 MG TABLET (FP) PO SCH (22:42)
[2019-06-09] MEDS ORDERED: chlordiazePOXIDE HCL 10 MG CAPSULE PO PRN
[2019-06-09 00:28] LABS: URINE APPEARANCE CLEAR; URINE BILIRUBIN NEGATIVE (NEGATIVE); URINE COLOR YELLOW; URINE GLUCOSE (UA) NEGATIVE (NEGATIVE); URINE KETONE NEGATIVE (NEGATIVE); URINE LEUK ESTERASE NEGATIVE (NEGATIVE); URINE NITRITE NEGATIVE (NEGATIVE); URINE PROTEIN NEGATIVE (NEGATIVE); URINE UROBILINOGEN 0.2 mg/dL (0.2-1.0)
[2019-06-09] MEDS: ALBUTEROL SO4 8 GM HFA INHALER IH PRN ×2 (04:30→17:25)
[2019-06-09] MEDS ORDERED: chlordiazePOXIDE HCL 10 MG CAPSULE PO SCH (05:00)
[2019-06-09] MEDS: chlordiazePOXIDE 5 MG CAPSULE PO SCH ×4 (05:13→23:33)
[2019-06-09] MEDS: PRENATAL VITAMINS W/ FOLIC ACID TABLET (FP) PO SCH (10:20)
[2019-06-09] MEDS: FLUOCINONIDE 0.05% TOP OINT (60 GM TUBE) TP SCH ×2 (10:20→23:32)
--- NOTE | 2019-06-09 11:25 | PN ---
[facility] CIWA - CIWA Score Nausea/Vomitin-No Nausea/No Vomiting Muscle Tremors: 2 Anxiety: 1-Mildly Anxious Agitation: 2 Paroxysmal Sweats: 1-Minimal Palms Moist Orientation: 0-Oriented Tacttile Disturbances: 0-None Auditory Disturbances: 0-None Visual Disturbances: 0-None Headache: 0-None Present CIWA-Ar Total Score: 6 S Progress Note (SOAP) Subjective: 43 years old male admitted on 06/06/19 for alcohol withdrawal sx management treating with librium detox regimen ate breakfast resting in bed encourage the patient to discuss aftercare with staff Objective: 06/09/19 11:24 Vital Signs Temperature 97.4 F L 06/09/19 09:19 Pulse Rate 80 06/09/19 09:19 Respiratory Rate 18 06/09/19 09:19 Blood Pressure 117/70 06/09/19 09:19 O2 Sat by Pulse Oximetry (%) Laboratory Last Values WBC 4.4 K/mm3 (4.0-10.0) 06/07/19 08:15 RBC 5.07 M/mm3 (4.00-5.60) 06/07/19 08:15 Hgb 11.9 GM/dL (11.7-16.9) 06/07/19 08:15 Hct 38.1 % (35.4-49) 06/07/19 08:15 MCV 75.0 fl (80-96) L 06/07/19 08:15 MCH 23.4 pg (25.7-33.7) L 06/07/19 08:15 MCHC 31.2 g/dl (32.0-35.9) L 06/07/19 08:15 RDW 17.0 % (11.9-15.9) H 06/07/19 08:15 Plt Count 180 K/MM3 (134-434) 06/07/19 08:15 MPV 9.2 fl (7.5-11.1) 06/07/19 08:15 Sodium 140 mmol/L (136-145) 06/07/19 08:15 Potassium 4.0 mmol/L (3.5-5.1) 06/07/19 08:15 Chloride 108 mmol/L (98-107) H 06/07/19 08:15 Carbon Dioxide 25 mmol/L (21-32) 06/07/19 08:15 Anion Gap 7 MMOL/L (8-16) L 06/07/19 08:15 BUN 13.3 mg/dL (7-18) 06/07/19 08:15 Creatinine 1.1 mg/dL (0.55-1.3) 06/07/19 08:15 Est GFR (CKD-EPI)AfAm 95.46 06/07/19 08:15 Est GFR (CKD-EPI)NonAf 82.36 06/07/19 08:15 Random Glucose 85 mg/dL (74-106) 06/07/19 08:15 Calcium 8.6 mg/dL (8.5-10.1) 06/07/19 08:15 Total Bilirubin 0.2 mg/dL (0.2-1) 06/07/19 08:15 AST 33 U/L (15-37) 06/07/19 08:15 ALT 25 U/L (13-61) 06/07/19 08:15 Alkaline Phosphatase 51 U/L (45-117) 06/07/19 08:15 Total Protein 6.5 g/dl (6.4-8.2) 06/07/19 08:15 Albumin 3.2 g/dl (3.4-5.0) L 06/07/19 08:15 Urine Color Yellow 06/08/19 20:30 Urine Appearance Clear 06/08/19 20:30 Urine pH 6.0 (5.0-8.0) D 06/08/19 20:30 Ur Specific [place] 1.027 (1.010-1.035) 06/08/19 20:30 Urine Protein Negative (NEGATIVE) 06/08/19 20:30 Urine Glucose (UA) Negative (NEGATIVE) 06/08/19 20:30 Urine Ketones Negative (NEGATIVE) 06/08/19 20:30 Urine Blood Negative (NEGATIVE) 06/08/19 20:30 Urine Nitrite Negative (NEGATIVE) 06/08/19 20:30 Urine Bilirubin Negative (NEGATIVE) 06/08/19 20:30 Urine Urobilinogen 0.2 mg/dL (0.2-1.0) 06/08/19 20:30 Ur Leukocyte Esterase Negative (NEGATIVE) 06/08/19 20:30 RPR Titer Reactive 1:1 (NONREACTIVE) H 06/07/19 08:15 T.pallidum Ab (A) Previously reactive (NONREACTIVE) 06/07/19 08:15 lab noted Assessment: 06/09/19 11:25 alcohol withdrawal Plan: librium regimen
--- NOTE | 2019-06-09 13:49 | CONSULT ---
[facility] Psychiatric Consult - Data Date of interview: 06/09/19 Admission source: [facility] Identifying data: Revisit to [facility] and admission to [address] [place] [address] for this 43 y/o AA male, self-referred for detoxification treatment. VENKATESH issues : alcohol, cocaine, nicotine. Patient is single, father of four, homeless, unemployed and supported on SSI benefits. Substance Abuse History: Discussed with the patient. Details in current [facility] report as follows : Smoking history: Current every day smoker. Have you smoked in the past 12 months: Yes. Aproximately how many cigarettes per day: 20. Hx Chewing Tobacco Use: No. Initiated information on smoking cessation: Yes. ' Breaking Loose' booklet given: 06/06/19. - Substance & Tx. History. Hx Alcohol Use: Yes. Hx Substance Use: Yes. Substance Use Type: Alcohol, Cocaine. Hx Substance Use Treatment: Yes ([facility] 05/09/18 to 05/13/19). - Substances abused. Alcohol. Substance route: Oral. Frequency: Daily. Amount used: 3-4 pints of liquor, 1 six packof 12 ozs of beer. Age of first use : 23. Date of last use: 06/06/19. Cocaine. Substance route: Smoking. Frequency: 3-6 times per week. Amount used: $100. Age of first use: 23. Date of last use: 06/05/19 Medical History: Medical profile is remarkable for bronchial asthma, hypertension, eczema, antecedent of syncope, multiple sclerosis (self-report) and history of treatment for syphilis. Psychiatric History: Patient endorses a distant history of psychiatric hospitalizations (years ago, at [facility] in [place]). Mr Baltazar reports that he was diagnosed, at the time, with MDD and Bipolar Disorder. He has also indicated that he has been lost to psychiatric follow-up for years. No contact with OPD care providers. Patient remembers past treatment with sertraline and " two other medications ". Off psychotropic medications for months. " I did not come here to get medications, I came to take care of my housing situation. I have multiple sclerosis and getting housing should not be a problem if you, guys, give me a psychosocial (sic). I am not in withdrawal, that's why I refuse librium that makes me sleep all day long. I need a psychosocial from the psychiatrist. That's all. " Patient denies history of suicide attempts. Physical/Sexual Abuse/Trauma History: Patient denies history of abuse. Additional Comment: Urine drug screen results: HECTOR-Cocaine, BZO- Benzodiazepines. Noted. Mental Status Exam - Mental Status Exam Alert and Oriented to: Time, Place, Person Cognitive Function: Good Patient Appearance: Well Groomed (muscular build) Mood: Angry (at staff because he believes that " they are not doing enough to help me get housing " ), Irritable Affect: Appropriate, Normal Range Patient Behavior: Cooperative (marginally cooperative with check writer) Speech Pattern: Clear Voice Loudness: Normal Thought Process: Intact, Goal Oriented Thought Disorder: Not Present Hallucinations: Denies Suicidal Ideation: Denies Homicidal Ideation: Denies Insight/Judgement: Fair Sleep: Well Appetite: Good Muscle strength/Tone: Normal (no complaint offered) Gait/Station: Normal Psychiatric Findings - Problem List ([place] 1, 2,3) (1) Alcohol dependence with uncomplicated withdrawal Current Visit: Yes Status: Acute (2) Cocaine dependence, uncomplicated Current Visit: Yes Status: Chronic (3) Nicotine dependence Current Visit: Yes Status: Chronic Qualifiers: Nicotine product type: cigarettes Substance use status: in withdrawal Qualified Code(s): F17.213 - Nicotine dependence, cigarettes, with withdrawal (4) Substance induced mood disorder Current Visit: Yes Status: Chronic - Initial Treatment Plan Initial Treatment Plan: Psychoeducation. Sleep hygiene. Support. Detoxification offered : patient is non-adherent to protocol. Patient is given information about the process of application for housing. He is referred to the social work team for appropriate management of his issues. Patient is not psychotic. No delusions elicited. No evidence of cadence or acute depressive symptoms /signs. There is strong suspicion of a character disorder (antisocial). No indication or justification for utilization of antipsychotic medications or mood stabilizers. In fact, the patient has made it clear that he is AGAINST resuming psychotropic drugs, including ETOH detoxification protocol (see nurses's notes : no compliance with medications). Mr Baltazar is at his baseline. Mental status is stable. Patient has clearly established that his purpose for admission to [facility] was to obtain documentation to support his housing application. No acute psychiatric issues. Observation.
[2019-06-09] MEDS: THIAMINE HCL 100 MG TABLET (FP) PO SCH (23:33)
[2019-06-10] MEDS: ALBUTEROL SO4 8 GM HFA INHALER IH PRN ×2 (04:37→16:53)
[2019-06-10] MEDS ORDERED: chlordiazePOXIDE HCL 10 MG CAPSULE PO SCH ×2 (05:00)
[2019-06-10] MEDS: chlordiazePOXIDE 5 MG CAPSULE PO SCH ×2 (08:14→19:42)
[2019-06-10] MEDS: COLLOIDAL OATMEAL 1 BAR EACH TP PRN (09:36)
[2019-06-10] MEDS: FLUOCINONIDE 0.05% TOP OINT (60 GM TUBE) TP SCH ×2 (10:29→22:07)
[2019-06-10] MEDS: PRENATAL VITAMINS W/ FOLIC ACID TABLET (FP) PO SCH (10:29)
--- NOTE | 2019-06-10 10:34 | PN ---
S CIWA - CIWA Score Nausea/Vomitin-No Nausea/No Vomiting Muscle Tremors: 2 Anxiety: 1-Mildly Anxious Agitation: 1-Slight > Activity Paroxysmal Sweats: No Perspiration Orientation: 0-Oriented Tacttile Disturbances: 0-None Auditory Disturbances: 0-None Visual Disturbances: 0-None Headache: 0-None Present CIWA-Ar Total Score: 4 BHS Progress Note (SOAP) Subjective: I dont need anymore librium. I am ready to go Objective: 06/10/19 10:34 Vital Signs Temperature 98.1 F 06/10/19 09:35 Pulse Rate 91 H 06/10/19 09:35 Respiratory Rate 19 06/10/19 09:35 Blood Pressure 109/53 L 06/10/19 09:35 O2 Sat by Pulse Oximetry (%) aaox3 ambulating no acute distress Assessment: 06/10/19 10:34 mild to no withdrawals noted Plan: d/c today
[2019-06-10] MEDS: THIAMINE HCL 100 MG TABLET (FP) PO SCH (21:11)
[2019-06-11] MEDS ORDERED: chlordiazePOXIDE 5 MG CAPSULE PO ONE (05:00)
[2019-06-11] MEDS ORDERED: chlordiazePOXIDE HCL 10 MG CAPSULE PO ONE ×2 (05:00)
[2019-06-11] MEDS: ALBUTEROL SO4 8 GM HFA INHALER IH PRN ×2 (05:22→10:25)
[2019-06-11 08:21] VITALS: BP 110/70; PULSE 67; TEMP 97.9
--- NOTE | 2019-06-11 09:12 | DS ---
[facility] Detox Discharge Summary Admission Date: 06/06/19 Discharge Date: 06/11/19 - History Present History: Alcohol Dependence, Cocaine Dependence - Physical Exam Results Vital Signs: Vital Signs Temperature 97.9 F 06/11/19 08:20 Pulse Rate 67 06/11/19 08:20 Respiratory Rate 20 06/11/19 08:20 Blood Pressure 110/70 06/11/19 08:20 O2 Sat by Pulse Oximetry (%) - Treatment Hospital Course: Detox Protocol Followed, Detoxed Safely, Responded well, Discharged Condition Good, Rehab Referral Accepted Patient has Accepted a Rehab Referral to: pt referred to [facility] - Medication Discharge Medications: Ambulatory Orders Albuterol Sulfate Inhaler - [Ventolin HFA Inhaler -] 1 puff IH Q4H PRN #1 canister 03/24/15 - Diagnosis (1) Alcohol dependence with uncomplicated withdrawal Current Visit: Yes Status: Chronic (2) Syncope Current Visit: Yes Status: Acute (3) Cocaine dependence, uncomplicated Current Visit: Yes Status: Chronic (4) Nicotine dependence Current Visit: Yes Status: Chronic Qualifiers: Nicotine product type: cigarettes Substance use status: uncomplicated Qualified Code(s): F17.210 - Nicotine dependence, cigarettes, uncomplicated (5) Substance induced mood disorder Current Visit: Yes Status: Chronic (6) Bipolar disorder Current Visit: No Status: Acute (7) Sprain of left ankle Current Visit: No Status: Acute (8) Asthma Current Visit: Yes Status: Chronic Qualifiers: Asthma severity: mild Asthma persistence: intermittent Asthma complication type: with status asthmaticus Qualified Code(s): J45.22 - Mild intermittent asthma with status asthmaticus (9) Eczema Current Visit: Yes Status: Chronic Qualifiers: Eczema type: unspecified Qualified Code(s): L30.9 - Dermatitis, unspecified (10) HTN (hypertension) Current Visit: No Status: Chronic Qualifiers: Hypertension type: essential hypertension Qualified Code(s): I10 - Essential (primary) hypertension (11) Syphilis Current Visit: No Status: Chronic (12) Multiple sclerosis Current Visit: No Status: Suspected - AMA Did Patient Leave Against Medical Advice: No
[2019-06-11] MEDS: PRENATAL VITAMINS W/ FOLIC ACID TABLET (FP) PO SCH (10:24)
[2019-06-11] MEDS: FLUOCINONIDE 0.05% TOP OINT (60 GM TUBE) TP SCH (10:25)
== END 2019-06-11 10:49 | disposition home or self-care (01) | DRG 774 ==
LOC: YASAS 15:18 → Y3N 18:58 → Y6N 06-09 18:32
PROVIDERS: ADMIT Allergy & Immunology; ATTEND Allergy & Immunology
PROC: HZ2ZZZZ Detoxification Services for Substance Abuse Treatment (ICD-10-PCS; principal; 2019-06-06)
DX: F10.230 Alcohol dependence with withdrawal, uncomplicated (principal); F14.20 Cocaine dependence, uncomplicated; F17.210 Nicotine dependence, cigarettes, uncomplicated; F19.24 Other psychoactive substance dependence with psychoactive substance-induced mood disorder; F31.9 Bipolar disorder, unspecified; I10 Essential (primary) hypertension; J45.22 Mild intermittent asthma with status asthmaticus; L30.9 Dermatitis, unspecified; G35 Multiple sclerosis; E86.0 Dehydration; Z87.438 Personal history of other diseases of male genital organs; Z91.14 Patient's other noncompliance with medication regimen
CPT/HCPCS: 36415; 80053; 81003; 85027; 86593; 86780